=== PATIENT | female | born 1990 | race Caucasian/White ===

== ENCOUNTER 2017-05-28 08:14 | Emergency (ER) | payer OTHER ==
[2017-05-28 08:34] VITALS: BP 124/85; PULSE 98; RESP 18; TEMP 98; O2SAT 99; BMI 32.5
--- NOTE | 2017-05-28 09:20 | ED PDOC ---
Arrival/HPI - General Chief Complaint: Upper Extremity Problem/Injury Time Seen by Provider: 05/28/17 08:20 Historian: Patient - History of Present Illness Narrative History of Present Illness (Text): 05/28/17 09:18 27 yo female come in for evaluation of Right upper arm painful swelling gradually developed for past 2 days. Pt admits, " was boxing and got hit to Right arm". Otherwise, pt denies obvious deformity, skin changes, weakness, sensory or vascular deficits to Right arm. Pt reports, (+) , LNMP . Ambulate to Ed for evaluation, not in any apparent distress. Past Medical History - Provider Review Nursing Documentation Reviewed: Yes - Travel History Have you recently traveled outside [place] w/in the past 3 mons?: No - Past History Past History: No Previous - Infectious Disease Hx of Infectious Diseases: None - Tetanus Immunization Tetanus Immunization: Unknown - Past Medical History Past Medical History: No Previous - Pulmonary Hx Respiratory Disorders: No - HEENT Hx HEENT Disorder: No - Renal Hx Renal Disorder: No - Endocrine/Metabolic Hx Endocrine Disorders: No - Hematological/Oncological Hx Blood Disorders: No - Integumentary Hx Dermatological Disorder: No - Psychiatric Hx Depression: No Hx Emotional Abuse: No Hx Physical Abuse: No Hx Substance Use: No - Past Surgical History Past Surgical History: No Previous - Anesthesia Hx Anesthesia: No - Suicidal Assessment Feels Threatened In Home Enviroment: No Family/Social History - Physician Review Nursing Documentation Reviewed: Yes Family/Social History: No Known Family HX Smoking Status: Never Smoked Hx Alcohol Use: No Hx Substance Use: No Hx Substance Use Treatment: No Allergies/Home Meds Allergies/Adverse Reactions: Allergies No Known Allergies Allergy (Verified 05/28/17 08:33) Home Medications: Home Meds Medication Instructions Recorded Confirmed No Known Home Med 05/28/17 05/28/17 Review of Systems - Physician Review All systems were reviewed & negative as marked: Yes - Review of Systems Constitutional: Normal ENT: Normal Musculoskeletal: Myalgias Skin: Skin Lesions Neurological: Normal Endocrine: Normal Hemo/Lymphatic: Normal Psychiatric: Normal Physical Exam Vital Signs Reviewed: Yes Vital Signs Temp Pulse Resp BP Pulse Ox 05/28/17 08:27 98 F 98 H 18 124/85 99 Temperature: Afebrile Blood Pressure: Normal Pulse: Regular Respiratory Rate: Normal Appearance: Positive for: Well-Appearing, Non-Toxic, Comfortable Pain Distress: Mild Mental Status: Positive for: Alert and Oriented X 3 - Systems Exam Head: Present: Atraumatic, Normocephalic Upper Extremity: Present: Normal ROM, NORMAL PULSES, Swelling (mild tender swelling over lateral aspect Right upper arm over biceps muscle. No skin changes , no ecchymoses, no palpable deformity. No cellulitis, no flactulance. Like c/w mild hematoma.), Neurovascularly Intact, Capillary Refill < 2s. No: Erythema, Deformity Neurological: Present: GCS=15, Normal Sensory Function, Norm Deep Tendon Reflexes, Memory Normal Skin: Present: Warm, Dry, Normal Color. No: Abscess Psychiatric: Present: Alert, Oriented x 3 Medical Decision Making ED Course and Treatment: 05/28/17 On re-evaluation, pt is afebrile, hemodynamicaly stable. non-toxic. RUE: exam c/w mild tenderness swelling s/op injury, no skin changes, no palpable deformity. FAROM, no neurovascular deficits. Neurovascular deficits Imaging was offered to patient, explained risk during the , although will shield as per protocol. Pt agrees. Imagings review and appears normal. Pt advised. ref. to f/u with PMD, Ortho in2 -3 days for re-eavl. Pt denies nay symptoms associated with , appears to be early. Pt advised and ref. to F/u with OB in 2-3 days for evaluation as well. - RAD Interpretation Radiology Orders: 05/28/17 09:17 HUMERUS RIGHT [RAD] Stat (-) acute fx or dislocation Disposition/Present on Arrival - Present on Arrival Any Indicators Present on Arrival: No History of DVT/PE: No History of Uncontrolled Diabetes: No Urinary Catheter: No History of Decub. Ulcer: No History Surgical Site Infection Following: None - Disposition Have Diagnosis and Disposition been Completed?: Yes Diagnosis: Contusion, upper arm, Hematoma Disposition: HOME/ ROUTINE Disposition Time: 10:15 Patient Plan: Discharge Condition: STABLE Discharge Instructions (ExitCare): Contusion in Adults (ED) Additional Instructions: LIGHT DUTY TO RIGHT ARM JIMI WRAP TO CONTUSION AREA TYLENOL NEED FOR PAIN FOLLOW UP WITH ORTHOPEDIST IN 2-3 DAYS FOR RE-EVALUATION NEED RETURN TO ED IF ANY WORSENING OR NEW CHANGES. Referrals: Orville Garrido MD [Staff Provider] - Follow up with primary Forms: [employer] ([place])
--- NOTE | 2017-05-28 10:34 | RAD ---
PROCEDURE: Radiographs of the right humerus. HISTORY: Injury COMPARISON: None. FINDINGS: BONES: Bone alignment and mineralization are normal. There is no acute displaced fracture or bone destruction. SOFT TISSUES: Normal. OTHER FINDINGS: None. IMPRESSION: No acute fracture or dislocation.
== END 2017-05-28 10:53 | disposition home or self-care (01) ==
LOC: ED 08:14
DX: S40.021A Contusion of right upper arm, initial encounter (principal); W50.0XXA Accidental hit or strike by another person, initial encounter; Y93.71 Activity, boxing

== ENCOUNTER 2017-08-12 11:12 | Emergency (ER) | payer OTHER ==
[2017-08-12 11:13] VITALS: BMI 32.5
[2017-08-12 11:29] VITALS: O2SAT 98
[2017-08-12 11:56] VITALS: RESP 18; TEMP 98.8
--- NOTE | 2017-08-12 12:46 | ED PDOC ---
Arrival/HPI - General Chief Complaint: Cough, Cold, Congestion Time Seen by Provider: 08/12/17 11:36 Historian: Patient - History of Present Illness Narrative History of Present Illness (Text): 08/12/17 12:41 A 27 year old female currently 17 weeks , who denies any past medical history, presents to the emergency department complaining of cold like symptoms for 3 days. Patient reports a productive cough with yellow sputum, runny nose and congestion. Patient denies taking any medication to relief her symptoms due to her . Patient denies any fever, chills, sore throat, nausea, vomiting, diarrhea, constipation, abdominal pain, chest pain, shortness of breath, headache, dizziness or any other complaints. Time/Duration: Other (3 days) Symptom Course: Unchanged Context: Home Past Medical History - Provider Review Nursing Documentation Reviewed: Yes - Past History Past History: No Previous - Infectious Disease Hx of Infectious Diseases: None - Tetanus Immunization Tetanus Immunization: Unknown - Past Medical History Past Medical History: No Previous - Cardiac Hx Cardiac Disorders: No - Pulmonary Hx Respiratory Disorders: No - HEENT Hx HEENT Disorder: No - Renal Hx Renal Disorder: No - Endocrine/Metabolic Hx Endocrine Disorders: No - Hematological/Oncological Hx Blood Disorders: No - Integumentary Hx Dermatological Disorder: No - Musculoskeletal/Rheumatological Hx Musculoskeletal Disorders: No - Gastrointestinal Hx Gastrointestinal Disorders: No - Genitourinary/Gynecological Hx Genitourinary Disorders: No - Psychiatric Hx Psychophysiologic Disorder: No Hx Substance Use: No - Past Surgical History Past Surgical History: No Previous - Anesthesia Hx Anesthesia: No - Suicidal Assessment Feels Threatened In Home Enviroment: No Family/Social History - Physician Review Nursing Documentation Reviewed: Yes Family/Social History: No Known Family HX Smoking Status: Never Smoked Hx Alcohol Use: No Hx Substance Use: No Hx Substance Use Treatment: No Allergies/Home Meds Allergies/Adverse Reactions: Allergies No Known Allergies Allergy (Verified 08/12/17 11:25) Review of Systems - Physician Review All systems were reviewed & negative as marked: Yes - Review of Systems Constitutional: absent: Fevers, Night Sweats ENT: Rhinorrhea, Sinus Congestion. absent: Sore Throat Respiratory: Cough, Sputum. absent: SOB Cardiovascular: absent: Chest Pain Gastrointestinal: absent: Abdominal Pain, Constipation, Diarrhea, Nausea, Vomiting Neurological: absent: Headache, Dizziness Physical Exam Vital Signs Reviewed: Yes Vital Signs Temp Pulse Resp BP Pulse Ox 08/12/17 13:08 94 H 18 118/73 98 08/12/17 11:55 98.8 F 102 H 18 122/75 98 08/12/17 11:25 99.0 F 117 H 16 124/83 98 Temperature: Afebrile Blood Pressure: Normal Pulse: Tachycardic Respiratory Rate: Normal Appearance: Positive for: Well-Appearing, Non-Toxic, Comfortable Pain Distress: None Mental Status: Positive for: Alert and Oriented X 3 - Systems Exam Head: Present: Atraumatic, Normocephalic Pupils: Present: PERRL Extroacular Muscles: Present: EOMI Conjunctiva: Present: Normal Mouth: Present: Moist Mucous Membranes Pharnyx: Present: Normal. No: ERYTHEMA, EXUDATE, TONSILS ENLARGED Nose (Internal): Present: Other (congestion) Neck: Present: Normal Range of Motion Respiratory/Chest: Present: Clear to Auscultation, Good Air Exchange. No: Respiratory Distress, Accessory Muscle Use Cardiovascular: Present: Regular Rate and Rhythm, Normal S1, S2. No: Murmurs Abdomen: No: Tenderness, Distention, Peritoneal Signs Back: Present: Normal Inspection Upper Extremity: Present: Normal Inspection. No: Cyanosis, Edema Lower Extremity: Present: Normal Inspection. No: Edema Neurological: Present: GCS=15, CN II-XII Intact, Speech Normal Skin: Present: Warm, Dry, Normal Color. No: Rashes Psychiatric: Present: Alert, Oriented x 3, Normal Insight, Normal Concentration Medical Decision Making ED Course and Treatment: 08/12/17 12:41 Impression: A 27 year old female 17 weeks with cough, rhinorrhea and congestion Plan: -- Urine test -- Reassess and disposition Progress Notes: 08/12/17 12:59 I have discussed the results and plan with the patient, who expresses understanding. Patient in agreement with plan to be discharged home with prescription for antibiotic. Patient is stable for discharge. Patient was instructed to follow up with physician and to consult sudaphed use or return if symptoms worsen or new concerning symptoms arise. - Scribe Statement The provider has reviewed the documentation as recorded by the Nehalibberto Ring Provider Scribe Attestation: All medical record entries made by the Scribe were at my direction and personally dictated by me. I have reviewed the chart and agree that the record accurately reflects my personal performance of the history, physical exam, medical decision making, and the department course for this patient. I have also personally directed, reviewed, and agree with the discharge instructions and disposition. Disposition/Present on Arrival - Present on Arrival Any Indicators Present on Arrival: No History of DVT/PE: No History of Uncontrolled Diabetes: No Urinary Catheter: No History of Decub. Ulcer: No History Surgical Site Infection Following: None - Disposition Have Diagnosis and Disposition been Completed?: Yes Diagnosis: , Bronchitis Disposition: HOME/ ROUTINE Disposition Time: 12:59 Patient Plan: Discharge Patient Problems: Current Active Problems Problem Status Onset Acute Bronchitis Acute Condition: GOOD Discharge Instructions (ExitCare): Medications and , Acute Bronchitis Additional Instructions: [place]- It was a pleasure to meet you. Call your OB's office to ask about using sudaphed (pseudoephedrine). Start the amoxicillin if the sputum turns green. Return to us if worse or any problems. Quirino- Dr. Colton Fraire Prescriptions: Amoxicillin [Amoxil 500 mg Cap] 500 mg PO TID #30 cap Forms: [facility] (Citizen Of [place]), WORK NOTE
[2017-08-12 13:08] VITALS: BP 118/73; PULSE 94
== END 2017-08-12 13:26 | disposition home or self-care (01) ==
LOC: ED 11:12
DX: J20.9 Acute bronchitis, unspecified (principal); O26.92 Pregnancy related conditions, unspecified, second trimester; Z3A.17 17 weeks gestation of pregnancy